=== PATIENT | female | born 1950 | race Caucasian/White ===

== ENCOUNTER 2017-06-14 10:06 | Outpatient (CLI) | payer MEDICARE, OTHER ==
--- NOTE | 2017-06-15 18:08 | Mammography Report ---
DIGITAL SCREENING MAMMOGRAM: 06/14/2017 CLINICAL INDICATION: A 67-year-old for screening. COMPARISON: 05/2016, 04/2015, 03/2014, 02/2013, 01/2012, 10/2010, 09/2009. TECHNIQUE: Routine CC and MLO projections were obtained of the breasts. FINDINGS: The breasts demonstrate scattered fibroglandular densities bilaterally. Intramammary lymph nodes are stable. Coarse and punctate, typically benign calcifications are present. No suspicious masses, clustered microcalcifications, or regions of architectural distortion are identified. IMPRESSION: BENIGN FINDINGS. RECOMMENDATION: ROUTINE ANNUAL SCREENING UNLESS OTHERWISE CLINICALLY INDICATED. BIRADS CATEGORY: 2, BENIGN FINDINGS. STANDARD QUALIFYING STATEMENTS 1. This examination was reviewed with the aid of Computed-Aided Detection (CAD) . 2. A negative or benign imaging report should not delay biopsy if clinically suspicious findings are present. Consider surgical consultation if warranted. More than 5% of cancers are not identified by imaging. 3. Dense breasts may obscure an underlying neoplasm. JOB #: [id number] EXT JOB #: [id number] [facility]ITAL[facility]
== END 2017-06-14 10:07 | disposition home or self-care (01) ==
LOC: DI 10:06
PROVIDERS: ATTEND Family Medicine
DX: Z12.31 Encounter for screening mammogram for malignant neoplasm of breast (principal)
CPT/HCPCS: 77067

== ENCOUNTER 2018-06-28 10:02 | Outpatient (CLI) | payer MEDICARE, OTHER ==
[2018-06-28 13:49] LABS: BASOPHILS % (AUTO) 1.1 %; EOSINOPHILS # (AUTO) 0.4 10^3/uL (0.0-0.7); EOSINOPHILS % (AUTO) 8.4 %; HGB - HEMOGLOBIN 13.6 g/dL (12.0-16.0); LYMPHOCYTES % (AUTO) 21.6 %; MEAN CORPUSCULAR HEMOGLOBIN 29.9 pg (27.0-31.0); MEAN CORPUSCULAR HGB CONC 34.1 g/dL (32.0-36.0); MEAN CORPUSCULAR VOLUME 87.8 fL (81.0-99.0); MONOCYTES # (AUTO) 0.3 10^3/uL (0.0-1.0); NEUTROPHILS # (AUTO) 2.7 10^3/uL (1.5-6.6); NEUTROPHILS % (AUTO) 61.9 %; PLT - PLATELET COUNT 263 10^3/uL (130-450); RED BLOOD COUNT 4.53 10^6/uL (4.20-5.40); RED CELL DISTRIBUTION WIDTH 13.5 % (12.0-15.0); WHITE BLOOD COUNT 4.4 x10^3/uL (4.8-10.8)
[2018-06-28 13:59] LABS: ALBUMIN 3.9 g/dL (3.2-5.5); ALBUMIN/GLOBULIN RATIO 1.3 (1.0-2.2); ALKALINE PHOSPHATASE 61 IU/L (42-121); ALT ALANINE AMINOTRANSFERASE 24 IU/L (10-60); AST ASPARTATE AMINOTRANSFERASE 23 IU/L (10-42); BUN - BLOOD UREA NITROGEN 16 mg/dL (6-20); CALCIUM 10.1 mg/dL (8.5-10.3); CARBON DIOXIDE - CO2 30 mmol/L (21-32); CHLORIDE 103 mmol/L (101-111); CHOL/HDL RATIO 2.2 (<4.4); CHOLESTEROL 241 mg/dL; CREATININE 0.9 mg/dL (0.4-1.0); GFR - MDRD 62 (>89); GLUCOSE 102 mg/dL (70-100); HDL CHOLESTEROL 108 mg/dL; LDL CHOLESTEROL,CALCULATED 121 mg/dL; LDL/HDL RATIO 1.1 (<4.4); SODIUM 137 mmol/L (135-145); TOTAL PROTEIN 6.9 g/dL (6.7-8.2); VLDL CHOLESTEROL 12 mg/dL
[2018-06-28 14:00] LABS: HEMOGLOBIN A1C 0.48 g/dL; HEMOGLOBIN A1C % 5.3 % (4.6-6.2)
[2018-06-29 12:17] LABS: HEPATITIS C ANTIBODY NON-REACTIVE (NON-REACTIVE)
== END 2018-06-28 23:59 | disposition home or self-care (01) ==
LOC: LAB.WCP 10:02
PROVIDERS: ATTEND Family Medicine
DX: I10 Essential (primary) hypertension (principal); R73.01 Impaired fasting glucose; Z11.59 Encounter for screening for other viral diseases
CPT/HCPCS: 36415; 80053; 80061; 83036; 83721; 85025; 86803

== ENCOUNTER 2018-08-02 11:16 | Outpatient (CLI) | payer MEDICARE, OTHER ==
--- NOTE | 2018-08-03 14:45 | Mammography Report ---
Reason: SCREENING MAMMO Procedure Date: 08/02/2018 Accession Number: [id number] / [id number] Procedure: ADRIENNE - Screening Mammo w/Natalio CPT Code: FULL RESULT: EXAM: Screening Mammo w/Natalio DATE: 08/02/2018 11:49 AM CLINICAL HISTORY: Routine screening TECHNIQUE: Bilateral CC and MLO views were obtained. COMPARISON: 06/14/2017, 05/20/2016, 05/05/2015, 03/19/14 and 02/21/2013 FINDINGS: There are scattered fibroglandular densities. There has been no significant change. No suspicious masses, clustered microcalcifications, or regions of architectural distortion are identified. Bilateral nodular densities are stable. IMPRESSION: Benign findings RECOMMENDATION: Routine annual screening unless otherwise clinically indicated. BIRADS CATEGORY 2: Benign findings STANDARD QUALIFYING STATEMENTS: 1. This examination was not reviewed with the aid of Computer-Aided Detection (CAD). 2. A negative or benign imaging report should not delay biopsy if clinically suspicious findings are present. Consider surgical consultation if warrented. More than 5% of cancers are not identified by imaging. 3. Dense breasts may obscure an underlying neoplasm. 4. This examination was reviewed with the aid of 3D breast imaging (tomosynthesis).
== END 2018-08-02 11:17 | disposition home or self-care (01) ==
LOC: DI 11:16
DX: Z12.31 Encounter for screening mammogram for malignant neoplasm of breast (principal)
CPT/HCPCS: 77063; 77067

== ENCOUNTER 2019-12-20 13:57 | Outpatient (CLI) | payer MEDICARE, OTHER ==
[2019-12-20 18:27] LABS: BASOPHILS % (AUTO) 0.9 %; EOSINOPHILS # (AUTO) 0.2 10^3/uL (0.0-0.7); EOSINOPHILS % (AUTO) 5.4 %; HGB - HEMOGLOBIN 14.4 g/dL (12.0-16.0); LYMPHOCYTES # (AUTO) 0.9 10^3/uL (1.5-3.5); LYMPHOCYTES % (AUTO) 20.6 %; MEAN CORPUSCULAR HEMOGLOBIN 29.9 pg (27.0-31.0); MEAN CORPUSCULAR HGB CONC 33.2 g/dL (32.0-36.0); MEAN CORPUSCULAR VOLUME 90.2 fL (81.0-99.0); MONOCYTES # (AUTO) 0.4 10^3/uL (0.0-1.0); MONOCYTES % (AUTO) 9.4 %; NEUTROPHILS # (AUTO) 2.8 10^3/uL (1.5-6.6); NEUTROPHILS % (AUTO) 63.5 %; PLT - PLATELET COUNT 265 10^3/uL (130-450); RED BLOOD COUNT 4.81 10^6/uL (4.20-5.40); WHITE BLOOD COUNT 4.5 x10^3/uL (4.8-10.8)
[2019-12-20 19:02] LABS: HEMOGLOBIN A1C 0.51 g/dL; HEMOGLOBIN A1C % 5.3 % (4.6-6.2)
[2019-12-20 19:07] LABS: ALBUMIN/GLOBULIN RATIO 1.3 (1.0-2.2); ALKALINE PHOSPHATASE 57 IU/L (42-121); ALT ALANINE AMINOTRANSFERASE 30 IU/L (10-60); AST ASPARTATE AMINOTRANSFERASE 25 IU/L (10-42); BILIRUBIN,TOTAL 1.1 mg/dL (0.2-1.0); BUN - BLOOD UREA NITROGEN 28 mg/dL (6-20); CALCIUM 10.2 mg/dL (8.5-10.3); CARBON DIOXIDE - CO2 30 mmol/L (21-32); CHLORIDE 101 mmol/L (101-111); CHOL/HDL RATIO 2.4 (<4.4); CHOLESTEROL 269 mg/dL; CREATININE 0.9 mg/dL (0.4-1.0); GLUCOSE 103 mg/dL (70-100); HDL CHOLESTEROL 113 mg/dL; LDL CHOLESTEROL,CALCULATED 141 mg/dL; LDL/HDL RATIO 1.2 (<4.4); SODIUM 140 mmol/L (135-145); TOTAL PROTEIN 7.2 g/dL (6.7-8.2); VLDL CHOLESTEROL 15 mg/dL
== END 2019-12-20 23:59 | disposition home or self-care (01) ==
LOC: LAB.WCP 13:57
PROVIDERS: ATTEND Family Medicine
DX: R73.01 Impaired fasting glucose (principal); E78.5 Hyperlipidemia, unspecified; I10 Essential (primary) hypertension
CPT/HCPCS: 36415; 80053; 80061; 83036; 83721; 85025

== ENCOUNTER 2019-12-27 15:16 | Outpatient (CLI) | payer MEDICARE, OTHER ==
--- NOTE | 2019-12-28 08:52 | Mammography Report ---
BILATERAL DIGITAL SCREENING MAMMOGRAM 3D/2D: 12/27/2019 CLINICAL: Routine screening. Comparison is made to exams dated: 08/02/2018 mammogram, 06/14/2017 mammogram, and 05/20/2016 mammogra m - [facility]. There are scattered fibroglandular elements in both breasts. No significant masses, calcifications, or other findings are seen in either breast. There has been no significant interval change. IMPRESSION: NEGATIVE There is no mammographic evidence of malignancy. A 1 year screening mammogram is recommended. This exam was interpreted at Station ID: [id number]. NOTE: For mammograms, a report in lay terms will be sent to the patient. Approximately 15% of breast malignancies will not be visualized mammographically. In the management of a palpable breast mass, a negative mammogram must not discourage biopsy of a clinically suspicious lesion. Electronically Signed By: Justus Russo M.D. ddp/penrad:12/27/2019 16:42:40 ACR BI-RADS Category 1: Negative 3341F PARENCHYMAL PATTERN: (A) - The breast(s) demonstrate(s) scattered fibroglandular densities. BI-RADS CATEGORY: (1) - 1 RECOMMENDATION: (ANNUAL) - Recommend routine annual screening mammography. [id number] 1 year screening LATERALITY: (B)
== END 2019-12-27 15:17 | disposition home or self-care (01) ==
LOC: DI 15:16
DX: Z12.31 Encounter for screening mammogram for malignant neoplasm of breast (principal)
CPT/HCPCS: 77063; 77067

== ENCOUNTER 2020-03-25 08:00 | Outpatient (CLI) | payer MEDICARE, OTHER ==
[2020-03-25 13:42] LABS: CHOL/HDL RATIO 2.1 (<4.4); CHOLESTEROL 192 mg/dL; HDL CHOLESTEROL 93 mg/dL
== END 2020-03-25 23:59 | disposition home or self-care (01) ==
LOC: LAB.WCP 08:00
PROVIDERS: ATTEND Family Medicine
DX: E78.5 Hyperlipidemia, unspecified (principal)
CPT/HCPCS: 36415; 80061; 83721

== ENCOUNTER 2020-05-30 11:08 | Day surgery (SDC) | payer MEDICARE, OTHER | END 2020-05-30 11:09 | disposition home or self-care (01) | LOC: SDS 11:08 | PROVIDERS: ATTEND Surgery | DX: Z53.9 Procedure and treatment not carried out, unspecified reason (principal) ==

== ENCOUNTER 2020-08-15 14:48 | Emergency (ER) | payer MEDICARE, OTHER ==
--- NOTE | 2020-08-15 15:05 | ED Physician Documentation ---
History of Present Illness - Stated complaint Stated Complaint: FELL OFF LADDER,LOC - Chief complaint Chief Complaint: Trauma Hd/Nk - Additonal information Additional information: 70-year-old female presents to the emergency department for evaluation of loss of consciousness after a fall off a ladder when a branch she was cutting from a tree knocked the ladder down. She reports that she was on the fourth rung falling backwards flat onto her back. The fall was witnessed by 2 retired RNs at the scene. They do report loss of consciousness for perhaps as long as 10 minutes. However patient reports that at this time she feels well however she does not remember the fall. She denies headache neck pain though she feels that her upper back is stiff. No history of anticoagulation. Patient was ambulatory on scene and driven to the emergency department. She was placed as a modified trauma on presentation and a rigid cervical collar. Review of Systems Constitutional: reports: Reviewed and negative Ears: reports: Reviewed and negative Nose: reports: Reviewed and negative Throat: reports: Reviewed and negative Cardiac: reports: Reviewed and negative Respiratory: reports: Reviewed and negative GI: reports: Reviewed and negative : reports: Reviewed and negative Skin: reports: Reviewed and negative Musculoskeletal: reports: Back pain. denies: Neck pain Neurologic: reports: Reviewed and negative Psychiatric: reports: Reviewed and negative Endocrine: reports: Reviewed and negative PD PAST MEDICAL HISTORY - Past Medical History Cardiovascular: Hypertension, High cholesterol, Murmur Respiratory: None Endocrine/Autoimmune: None GI: None, Colon polyps : None HEENT: Glaucoma, Chronic sinusitis Psych: None Musculoskeletal: Osteoarthritis Derm: Eczema - Past Surgical History General: Colonoscopy /EDUCATIONAL ADVISER: section Derm: Skin cancer surgery - Present Medications Home Medications: Ambulatory Orders Medication Instructions Recorded Confirmed Ascorbic Acid [Vitamin C] 1 mg PO DAILY 05/29/20 08/15/20 Aspirin [Aspirin EC] 1 mg PO DAILY 05/29/20 08/15/20 Losartan [Cozaar] 25 mg PO DAILY 05/29/20 08/15/20 Multivit with Minerals/Lutein 1 each PO DAILY 05/29/20 08/15/20 [Theratrum Complete 50 Plus Tab] [place]-3/Dha/Epa/Fish Oil [Fish Oil 1 each PO DAILY 05/29/20 08/15/20 1,000 mg Softgel] Pravastatin Sodium [Pravachol] 20 mg PO DAILY 05/29/20 08/15/20 Triamterene/Hydrochlorothiazid 37.5 mg PO DAILY 05/29/20 08/15/20 [Triamterene-Hctz 37.5-25 mg Tb] Acetaminophen [Tylenol] 650 mg PO Q6H PRN #30 tab 08/15/20 - Allergies Allergies/Adverse Reactions: Allergies Allergy/AdvReac Type Severity Reaction Status Date / Time amoxicillin Allergy Hives Verified 08/15/20 14:50 ciprofloxacin Allergy Nausea Verified 08/15/20 14:50 cortisone Allergy Rash Verified 08/15/20 14:50 erythromycin base Allergy Cramps Verified 08/15/20 14:50 naproxen Allergy Nausea Verified 08/15/20 14:50 Sulfa (Sulfonamide Allergy Nausea Verified 08/15/20 14:50 Antibiotics) PD ED PE EXPANDED - General General: Alert, No acute distress, Well developed/nourished - Neck Neck: Supple w/out meningeal sx, No tenderness. No: Limited ROM - Cardiac Cardiac: Regular Rate, Regular Rhythm, Radial strong equal, Pedal strong equal - Respiratory Respiratory: Clear to ausultation adair. No: Distress, Labored - Abdomen Abdomen: Normal Bowel sounds. No: Tender to palpation - Derm Derm: Normal color, Warm and dry. No: Rash - Extremities Extremities: Normal, Other (motor strength 5/5 X4). No: Deformity, Tenderness - Neuro Neuro: Alert and Oriented X 3, CNII-XII intact, Normal gait, Normal finger nose, Normal speech - GCS Eye Opening: Spontaneous Motor: Obeys Commands Verbal: Oriented Total: 15 Results - Vitals Vitals: Vital Signs - 24 hr 08/15/20 08/15/20 08/15/20 14:51 15:24 16:17 Temperature 36.5 C Heart Rate 77 80 85 Respiratory 16 24 16 Rate Blood Pressure 150/68 H 149/76 H 130/77 O2 Saturation 98 99 98 Oxygen O2 Source Room air - Labs Labs: Laboratory Tests 08/15/20 08/15/20 08/15/20 15:03 15:03 15:03 WBC 9.7 RBC 4.67 Hgb 13.8 Hct 41.6 MCV 89.1 MCH 29.6 MCHC 33.2 RDW 13.1 Plt Count 274 MPV 10.6 Neut # (Auto) 7.8 H Lymph # (Auto) 1.1 L [place] # (Auto) 0.6 Eos # (Auto) 0.1 Baso # (Auto) 0.1 Absolute Nucleated RBC 0.00 Nucleated RBC % 0.0 PT 12.6 INR 1.1 Sodium 140 Potassium 3.2 L Chloride 100 L Carbon Dioxide 27 Anion Gap 13.0 BUN 27 H Creatinine 1.0 Estimated GFR (MDRD) 55 L Glucose 114 H Calcium 10.7 H Total Bilirubin 0.9 AST 31 ALT 35 Alkaline Phosphatase 59 Total Protein 7.5 Albumin 4.3 Globulin 3.2 Albumin/Globulin Ratio 1.3 Lipase 23 - Rads (name of study) CT neck Radiology: Final report received (No acute fracture. Multilevel degenerative changes seen throughout the cervical spine.) CT head Radiology: Final report received (No acute intracranial abnormality.) CXR Radiology: Final report received (No acute cardiopulmonary pathology.) PD MEDICAL DECISION MAKING - ED course Complexity details: reviewed results, re-evaluated patient, considered differential, d/w patient ED course: This is a well-appearing 70-year-old female that presents to the emergency department for evaluation after a fall from a ladder this afternoon. A tree branch knocked the ladder from under her and she fell flat onto her back. She did have associated loss of consciousness. She presented as a modified trauma and had been placed in C-spine precautions. On initial presentation patient is alert and very well-appearing. She had no motor deficits and was quite cognizant. Given history of trauma a CT of the head and neck was completed. No acute fractures noted. We do note degenerative changes in the cervical spine. Cervical collar was removed and patient is moving normally with a normal gait. Patient will be discharged home. Recommend Tylenol or ibuprofen at home for discomfort. Emergent return precautions discussed for suddenly severe worsening pain, fevers uncontrolled vomiting. Departure - Departure Disposition: 01 Home, Self Care Clinical Impression: Loss of consciousness Fall from ladder Qualifiers: Encounter type: initial encounter Qualified Code(s): W11.XXXA - Fall on and from ladder, initial encounter Concussion Qualifiers: Encounter type: initial encounter Loss of consciousness presence/duration: with LOC of 30 min or less Qualified Code(s): S06.0X1A - Concussion with loss of consciousness of 30 minutes or less, initial encounter Condition: Stable Record reviewed to determine appropriate education?: Yes Instructions: Concussion Dc Follow-Up: Solo Capellan DO [Primary Care Provider] - Prescriptions: Acetaminophen [Tylenol] 650 mg PO Q6H PRN #30 tab PRN Reason: Pain Comments: You were seen today after a fall from a ladder. The chest x-ray and CT of your head do not show any broken bones. Your cervical spine does not show any broken bones however you do have degenerative disc disease. However because you did lose consciousness you likely have suffered a concussion. The best treatment for this is to get plenty of sleep and avoid excessive screen time, TV or computer usage. I do recommend that you take Tylenol with food 3-4 times a day for the next few days. It is likely you will feel sore over the next 48 to 72 hours but then should begin to feel better. If at any point you develop a suddenly severe headache, have uncontrolled vomiting, fevers weakness in your arms or legs please return immediately to the ER.
--- NOTE | 2020-08-15 15:13 | XRAY Report ---
PROCEDURE: Chest 1 View X-Ray INDICATIONS: PAIN S/P FALL TECHNIQUE: One view of the chest was acquired. COMPARISON: None FINDINGS: Surgical changes and devices: None. Lungs and pleura: No pleural effusions or pneumothorax. Lungs are clear. Mediastinum: Mediastinal contours appear normal. Heart size is normal. Bones and chest wall: No suspicious bony lesions. Overlying soft tissues appear unremarkable. IMPRESSION: No acute cardiopulmonary pathology. Reviewed by: Salvador Grace MD on 08/15/2020 3:11 PM PST Approved by: Salvador Grace MD on 08/15/2020 3:11 PM [facility] Station ID: [id number]
[2020-08-15 15:14] LABS: BASOPHILS # (AUTO) 0.1 10^3/uL (0.0-0.1); BASOPHILS % (AUTO) 0.6 %; EOSINOPHILS # (AUTO) 0.1 10^3/uL (0.0-0.7); EOSINOPHILS % (AUTO) 1.2 %; HGB - HEMOGLOBIN 13.8 g/dL (12.0-16.0); LYMPHOCYTES # (AUTO) 1.1 10^3/uL (1.5-3.5); LYMPHOCYTES % (AUTO) 11.3 %; MEAN CORPUSCULAR HEMOGLOBIN 29.6 pg (27.0-31.0); MEAN CORPUSCULAR HGB CONC 33.2 g/dL (32.0-36.0); MEAN CORPUSCULAR VOLUME 89.1 fL (81.0-99.0); MEAN PLATELET VOLUME 10.6 fL (7.9-10.8); MONOCYTES # (AUTO) 0.6 10^3/uL (0.0-1.0); MONOCYTES % (AUTO) 6.1 %; NEUTROPHILS # (AUTO) 7.8 10^3/uL (1.5-6.6); NEUTROPHILS % (AUTO) 80.3 %; PLT - PLATELET COUNT 274 10^3/uL (130-450); RED BLOOD COUNT 4.67 10^6/uL (4.20-5.40); RED CELL DISTRIBUTION WIDTH 13.1 % (12.0-15.0); WHITE BLOOD COUNT 9.7 x10^3/uL (4.8-10.8)
[2020-08-15 15:23] LABS: ALBUMIN 4.3 g/dL (3.2-5.5); ALBUMIN/GLOBULIN RATIO 1.3 (1.0-2.2); BILIRUBIN,TOTAL 0.9 mg/dL (0.2-1.0); CALCIUM 10.7 mg/dL (8.5-10.3); TOTAL PROTEIN 7.5 g/dL (6.7-8.2)
[2020-08-15 15:27] LABS: INR 1.1 (0.8-1.2); PT - PROTHROMBIN TIME 12.6 secs (9.9-12.6)
--- NOTE | 2020-08-15 15:35 | CT Report ---
PROCEDURE: HEAD WO INDICATIONS: fall off ladder TECHNIQUE: Noncontrast 4.5 mm thick angled axial sections acquired from the foramen magnum to the vertex. For r adiation dose reduction, the following was used: automated exposure control, adjustment of mA and/or kV according to patient size. COMPARISON: None. FINDINGS: Image quality: Excellent. CSF spaces: Basal cisterns are patent. No extra-axial fluid collections. Ventricles are normal in size and shape. Brain: No intracranial hemorrhage, mass, or mass effect. [place]oto-white matter interface is preserved. Skull and face: Calvarium and visualized facial bones are intact, without suspicious lesions. Sinuses: Visualized sinuses and mastoids are clear. IMPRESSION: 1. No acute intracranial abnormality. Reviewed by: Justus Russo MD on 08/15/2020 3:34 PM [facility] Approved by: Justus Russo MD on 08/15/2020 3:34 PM [facility] Station ID: [id number]
--- NOTE | 2020-08-15 15:38 | CT Report ---
PROCEDURE: CERVICAL SPINE WO INDICATIONS: fall off ladder TECHNIQUE: Noncontrast 3 mm thick sections acquired from the skull base to the T4 level. Sagittal and coronal r eformats were then constructed. For radiation dose reduction, the following was used: automated exp osure control, adjustment of mA and/or kV according to patient size. COMPARISON: None. FINDINGS: Image quality: Excellent. Bones: No fractures or subluxation. There is multilevel degenerative disc disease including moderate degeneration at C4-C5, C5-C6, and C6-C7 with endplate sclerosis and osteophytosis. Mild uncovertebra l joint arthropathy is also present in the mid and lower cervical spine. There is mild to moderate fa cet arthropathy throughout the cervical spine. Visualized superior ribs are intact. Soft tissues: Prevertebral soft tissues are normal in thickness. No paravertebral hematomas. No ap ical pneumothoraces. IMPRESSION: 1. No fracture or subluxation. 2. Multilevel degenerative changes throughout the cervical spine. Reviewed by: Justus Russo MD on 08/15/2020 3:37 PM PST Approved by: Justus Russo MD on 08/15/2020 3:37 PM PST Station ID: [id number]
[2020-08-15 17:25] VITALS: BP 155/74
== END 2020-08-15 17:29 | disposition home or self-care (01) ==
LOC: ED 14:48
DX: S06.0X1A Concussion with loss of consciousness of 30 minutes or less, initial encounter (principal); W11.XXXA Fall on and from ladder, initial encounter; Y93.H2 Activity, gardening and landscaping; I10 Essential (primary) hypertension
CPT/HCPCS: 36415; 80053; 83690; 85025; 85610; 99284

== ENCOUNTER 2020-09-04 10:13 | Day surgery (SDC) | payer MEDICARE, OTHER ==
[2020-09-04] MEDS ORDERED: LACTATED RINGERS 1,000 ML IV ONE ×2 (10:19→13:05)
[2020-09-04] MEDS ORDERED: fentaNYL 250 MCG/5 ML VIAL ONE (12:39)
[2020-09-04] MEDS ORDERED: MIDAZOLAM 2 MG/2 ML VIAL ONE ×3 (12:39→13:01)
[2020-09-04 13:48] VITALS: BP 138/70
== END 2020-09-04 10:14 | disposition home or self-care (01) ==
LOC: SDS 10:13
PROVIDERS: ATTEND Surgery
DX: Z12.11 Encounter for screening for malignant neoplasm of colon (principal); K57.30 Diverticulosis of large intestine without perforation or abscess without bleeding; K64.8 Other hemorrhoids; I10 Essential (primary) hypertension; K29.70 Gastritis, unspecified, without bleeding; E78.5 Hyperlipidemia, unspecified
CPT/HCPCS: G0121; J3010; J7120

== ENCOUNTER 2020-09-08 12:57 | Outpatient (CLI) | payer MEDICARE, OTHER ==
--- NOTE | 2020-09-08 15:32 | XRAY Report ---
PROCEDURE: Lumbar Spine 2 View INDICATIONS: LOW BACK PX, ACUTE S/P FALL TECHNIQUE: 2 views of the lumbar spine were acquired. COMPARISON: None. FINDINGS: No fracture. Scattered multilevel endplate spurring and diffuse facet arthropathy. Grade 1 anterolisthesis of L4 on L5. Trace retrolisthesis of L3 on L4. Diffuse mild narrowing of the lumbar disc spaces Soft tissues: Overlying bowel gas pattern is normal. No suspicious soft tissue calcifications. IMPRESSION: Lumbar spondylosis and grade 1 anterolisthesis of L4 on L5. Facet arthropathy Reviewed by: Hilario Reyes MD on 09/08/2020 3:30 PM PST Approved by: Hilario Reyes MD on 09/08/2020 3:30 PM PST Station ID: [id number]
== END 2020-09-08 12:58 | disposition home or self-care (01) ==
LOC: DI.N 12:57
PROVIDERS: ATTEND Family Medicine
DX: M54.5 Low back pain (principal); M47.816 Spondylosis without myelopathy or radiculopathy, lumbar region; Z91.81 History of falling

== ENCOUNTER 2020-12-31 08:00 | Outpatient (CLI) | payer MEDICARE, OTHER ==
[2020-12-31 11:51] LABS: BASOPHILS # (AUTO) 0.1 10^3/uL (0.0-0.1); BASOPHILS % (AUTO) 1.2 %; EOSINOPHILS # (AUTO) 0.3 10^3/uL (0.0-0.7); HCT - HEMATOCRIT 45.3 % (37.0-47.0); HGB - HEMOGLOBIN 14.5 g/dL (12.0-16.0); LYMPHOCYTES # (AUTO) 1.1 10^3/uL (1.5-3.5); LYMPHOCYTES % (AUTO) 25.3 %; MEAN CORPUSCULAR HEMOGLOBIN 29.3 pg (27.0-31.0); MEAN CORPUSCULAR VOLUME 91.5 fL (81.0-99.0); MONOCYTES # (AUTO) 0.4 10^3/uL (0.0-1.0); MONOCYTES % (AUTO) 9.2 %; NEUTROPHILS # (AUTO) 2.4 10^3/uL (1.5-6.6); NEUTROPHILS % (AUTO) 58.1 %; PLT - PLATELET COUNT 250 10^3/uL (130-450); RED BLOOD COUNT 4.95 10^6/uL (4.20-5.40); RED CELL DISTRIBUTION WIDTH 12.9 % (12.0-15.0); WHITE BLOOD COUNT 4.2 x10^3/uL (4.8-10.8)
[2020-12-31 12:35] LABS: ALBUMIN 4.3 g/dL (3.2-5.5); ALBUMIN/GLOBULIN RATIO 1.5 (1.0-2.2); ALKALINE PHOSPHATASE 56 IU/L (42-121); ALT ALANINE AMINOTRANSFERASE 34 IU/L (10-60); AST ASPARTATE AMINOTRANSFERASE 27 IU/L (10-42); BILIRUBIN,TOTAL 1.3 mg/dL (0.2-1.0); BUN - BLOOD UREA NITROGEN 33 mg/dL (6-20); CALCIUM 10.6 mg/dL (8.5-10.3); CARBON DIOXIDE - CO2 32 mmol/L (21-32); CHLORIDE 97 mmol/L (101-111); CHOL/HDL RATIO 1.9 (<4.4); CHOLESTEROL 232 mg/dL; CREATININE 0.9 mg/dL (0.4-1.0); GFR - MDRD 62 (>89); GLUCOSE 111 mg/dL (70-100); HDL CHOLESTEROL 120 mg/dL; LDL CHOLESTEROL,CALCULATED 104 mg/dL; LDL/HDL RATIO 0.9 (<4.4); POTASSIUM 3.8 mmol/L (3.5-5.0); SODIUM 139 mmol/L (135-145); TOTAL PROTEIN 7.2 g/dL (6.7-8.2); TRIGLYCERIDES 42 mg/dL; VLDL CHOLESTEROL 8 mg/dL
[2020-12-31 12:36] LABS: ESTIMATED AVERAGE GLUCOSE 100 mg/dL (70-100); HEMOGLOBIN A1c% 5.1 % (4.27-6.07)
== END 2020-12-31 23:59 | disposition home or self-care (01) ==
LOC: LAB.WCP 08:00
PROVIDERS: ATTEND Family Medicine
DX: R73.01 Impaired fasting glucose (principal); I10 Essential (primary) hypertension; E78.5 Hyperlipidemia, unspecified
CPT/HCPCS: 36415; 80053; 80061; 83036; 83721; 85025

== ENCOUNTER 2021-02-09 08:54 | Outpatient (CLI) | payer MEDICARE, OTHER ==
--- NOTE | 2021-02-10 12:57 | Mammography Report ---
BILATERAL DIGITAL SCREENING MAMMOGRAM 3D/2D: 02/09/2021 CLINICAL: Routine screening. Comparison is made to exams dated: 12/27/2019 mammogram, 08/02/2018 mammogram, 06/14/2017 mammogram, 07/20/2015 mammogram, 05/05/2015 mammogram, and 03/19/2014 mammogram - [facility]. The re are scattered fibroglandular elements in both breasts. No significant masses, calcifications, or other findings are seen in either breast. There has been no significant interval change. IMPRESSION: NEGATIVE There is no mammographic evidence of malignancy. A 1 year screening mammogram is recommended. This exam was interpreted at Station ID: [id number]. NOTE: For mammograms, a report in lay terms will be sent to the patient. Approximately 15% of breast malignancies will not be visualized mammographically. In the management of a palpable breast mass, a negative mammogram must not discourage biopsy of a clinically suspicious lesion. Electronically Signed By: Efrain Cordon M.D., jr/prasanna:02/09/2021 09:34:46 ACR BI-RADS Category 1: Negative 3341F PARENCHYMAL PATTERN: (A) - The breast(s) demonstrate(s) scattered fibroglandular densities. BI-RADS CATEGORY: (1) - 1 RECOMMENDATION: (ANNUAL) - Recommend routine annual screening mammography. [id number] 1 year screening LATERALITY: (B)
== END 2021-02-09 08:55 | disposition home or self-care (01) ==
LOC: DI 08:54
DX: Z12.31 Encounter for screening mammogram for malignant neoplasm of breast (principal)

== ENCOUNTER 2022-04-05 14:41 | Outpatient (CLI) | payer MEDICARE, OTHER ==
--- NOTE | 2022-04-06 10:06 | Mammography Report ---
BILATERAL DIGITAL SCREENING MAMMOGRAM 3D/2D: 04/05/2022 CLINICAL: Routine screening. Comparison is made to exams dated: 02/09/2021 mammogram, 12/27/2019 mammogram, 08/02/2018 mammogram, mammogram, and 05/20/2016 mammogram - [facility]. There are scattered areas of fibroglandular density in both breasts (category b / 25%-50% glandular t issue). No significant masses, calcifications, or other findings are seen in either breast. There has been no significant interval change. IMPRESSION: NEGATIVE There is no mammographic evidence of malignancy. A 1 year screening mammogram is recommended. Based on the Tyrer Cuzick model (a risk assessment model) the patients lifetime risk is 5.9% and her 10 year risk is 4.8%. According to the ACR, ACS, and NCCN guidelines, an annual breast MRI exam [place] with mammogram is recommended if the patients lifetime risk is 20% or greater. This exam was interpreted at Station ID: [id number]. NOTE: For mammograms, a report in lay terms will be sent to the patient. Approximately 15% of breast malignancies will not be visualized mammographically. In the management of a palpable breast mass, a negative mammogram must not discourage biopsy of a clinically suspicious lesion. Electronically Signed By: Tosin wagner/prasanna:04/06/2022 09:37:42 ACR BI-RADS Category 1: Negative 3341F PARENCHYMAL PATTERN: (A) - The breast(s) demonstrate(s) scattered fibroglandular densities. BI-RADS CATEGORY: (1) - 1 RECOMMENDATION: (ANNUAL) - Recommend routine annual screening mammography. [id number] 1 year screening LATERALITY: (B)
== END 2022-04-05 14:42 | disposition home or self-care (01) ==
LOC: DI 14:41
DX: Z12.31 Encounter for screening mammogram for malignant neoplasm of breast (principal)

== ENCOUNTER 2022-04-06 09:49 | Outpatient (CLI) | payer MEDICARE, OTHER ==
[2022-04-06 12:53] LABS: BASOPHILS # (AUTO) 0.1 10^3/uL (0.0-0.1); BASOPHILS % (AUTO) 1.3 %; EOSINOPHILS # (AUTO) 0.2 10^3/uL (0.0-0.7); HCT - HEMATOCRIT 41.9 % (37.0-47.0); HGB - HEMOGLOBIN 14.2 g/dL (12.0-16.0); LYMPHOCYTES # (AUTO) 1.2 10^3/uL (1.5-3.5); LYMPHOCYTES % (AUTO) 26.8 %; MEAN CORPUSCULAR HEMOGLOBIN 30.3 pg (27.0-31.0); MEAN CORPUSCULAR HGB CONC 33.9 g/dL (32.0-36.0); MEAN CORPUSCULAR VOLUME 89.5 fL (81.0-99.0); MONOCYTES # (AUTO) 0.4 10^3/uL (0.0-1.0); NEUTROPHILS # (AUTO) 2.7 10^3/uL (1.5-6.6); NEUTROPHILS % (AUTO) 59.7 %; PLT - PLATELET COUNT 231 10^3/uL (130-450); RED BLOOD COUNT 4.68 10^6/uL (4.20-5.40); RED CELL DISTRIBUTION WIDTH 13.1 % (12.0-15.0); WHITE BLOOD COUNT 4.5 x10^3/uL (4.8-10.8)
[2022-04-06 13:12] LABS: ESTIMATED AVERAGE GLUCOSE 94 mg/dL (70-100); HEMOGLOBIN A1c% 4.9 % (4.27-6.07)
[2022-04-06 13:33] LABS: ALBUMIN 4.2 g/dL (3.2-5.5); ALBUMIN/GLOBULIN RATIO 1.5 (1.0-2.2); ALKALINE PHOSPHATASE 53 IU/L (42-121); ALT ALANINE AMINOTRANSFERASE 26 IU/L (10-60); AST ASPARTATE AMINOTRANSFERASE 23 IU/L (10-42); BUN - BLOOD UREA NITROGEN 21 mg/dL (6-20); CALCIUM 10.8 mg/dL (8.5-10.3); CARBON DIOXIDE - CO2 31 mmol/L (21-32); CHLORIDE 101 mmol/L (101-111); CHOL/HDL RATIO 1.8 (<4.4); CHOLESTEROL 221 mg/dL; CREATININE 0.8 mg/dL (0.4-1.0); GFR - MDRD 70 (>89); GLUCOSE 97 mg/dL (70-100); HDL CHOLESTEROL 120 mg/dL; LDL CHOLESTEROL,CALCULATED 91 mg/dL; LDL/HDL RATIO 0.8 (<4.4); POTASSIUM 3.9 mmol/L (3.5-5.0); SODIUM 140 mmol/L (135-145); TRIGLYCERIDES 52 mg/dL; VLDL CHOLESTEROL 10 mg/dL
[2022-04-06 13:48] LABS: THYROID STIMULATING HORMONE 2.14 uIU/mL (0.34-5.60)
== END 2022-04-06 09:50 | disposition home or self-care (01) ==
LOC: LAB.N 09:49
PROVIDERS: ATTEND Nurse Practitioner Family
DX: I10 Essential (primary) hypertension (principal); E55.9 Vitamin D deficiency, unspecified; R73.01 Impaired fasting glucose
CPT/HCPCS: 36415; 80053; 80061; 82306; 83036; 83721; 84443; 85025

== ENCOUNTER 2022-04-12 14:50 | Outpatient (CLI) | payer MEDICARE, OTHER ==
--- NOTE | 2022-04-12 16:00 | DEXA Report ---
PROCEDURE: Dexa Spine and/or Hip INDICATIONS: MENOPAUSAL TECHNIQUE: Dual energy x-ray absorptiometry (DXA) was performed on a [email or web address] System. Regions measur ed are the AP Spine, femoral neck, and if needed forearm. COMPARISON: None. FINDINGS: Lumbar Spine: Bone Mineral Density 1.245 g/cm/cm,T score 0.5, normal Left total Hip: Bone Mineral Density 0.854 g/cm/cm,T score -1.2, osteopenia Left Femoral Neck: Bone Mineral Density 0.852 g/cm/cm, T score -1.3, osteopenia (T score greater or equal to -1.0: NORMAL) (T score from -1.1 to -2.4: OSTEOPENIA) (T score less than or equal to -2.5 to: OSTEOPOROSIS) Impression: Osteopenia. Patients with diagnosis of osteoporosis or osteopenia should have regular bone mineral density assess ment. For those eligible for Medicare, routine testing is allowed once every 2 years. Testing frequ ency can be increased for patients who have rapidly progressing disease or for those who are receivin g medical therapy to restore bone mass. Reviewed by: Óscar Zhu on 04/12/2022 3:58 PM PDT Approved by: Óscar Zhu on 04/12/2022 3:58 PM PDT Station ID: [id number]
== END 2022-04-12 14:51 | disposition home or self-care (01) ==
LOC: DI 14:50
PROVIDERS: ATTEND Nurse Practitioner Family
DX: M85.89 Other specified disorders of bone density and structure, multiple sites (principal); N95.9 Unspecified menopausal and perimenopausal disorder